=== PATIENT | female | born 1980 | race Caucasian/White ===

== ENCOUNTER 2016-09-05 06:55 | Day surgery (SDC) | payer OTHER ==
[2016-09-04 15:28] VITALS: BMI 19.9
--- NOTE | 2016-09-05 08:26 | HP ---
Admitting History and Physical - Admission Chief Complaint: Multiparity History of Present Illness: 36 yo Para 2, desires permanent sterilization. She's Pre op for tubal ligation. History Source: Patient Limitations to Obtaining History: No Limitations - Past Medical History ...LMP: 07/17/16 ...: No - Past Surgical History Past Surgical History: Yes: None - Smoking History Smoking history: Never smoked Have you smoked in the past 12 months: No - Alcohol/Substance Use Hx Alcohol Use: No History of Substance Use: reports: None - Social History Usual Living Arrangement: Yes: With Spouse History of Recent Travel: No Home Medications - Allergies Allergies/Adverse Reactions: Allergies Allergy/AdvReac Type Severity Reaction Status Date / Time No Known Drug Allergies Allergy Verified 09/05/16 07:30 - Home Medications Home Medications: Ambulatory Orders NK [No Known Home Medication] 09/04/16 Family Disease History - Family Disease History Family History: Unremarkable Review of Systems - Review of Systems Constitutional: reports: No Symptoms Eyes: reports: No Symptoms HENT: reports: No Symptoms Neck: reports: No Symptoms Cardiovascular: reports: No Symptoms Respiratory: reports: No Symptoms Gastrointestinal: reports: No Symptoms Genitourinary: reports: No Symptoms Breasts: reports: No Symptoms Reported Musculoskeletal: reports: No Symptoms Integumentary: reports: No Symptoms Neurological: reports: No Symptoms Endocrine: reports: No Symptoms Hematology/Lymphatic: reports: No Symptoms Psychiatric: reports: No Symptoms Pain Intensity: 0 Physical Examination Vital Signs: Vital Signs Temperature 97.5 F L 09/05/16 07:29 Pulse Rate 73 09/05/16 07:29 Respiratory Rate 20 09/05/16 07:29 Blood Pressure 115/80 09/05/16 07:29 O2 Sat by Pulse Oximetry (%) 100 09/05/16 07:28 Constitutional: Yes: Well Nourished Eyes: Yes: Conjunctiva Clear HENT: Yes: Atraumatic Neck: Yes: Supple, Trachea Midline Cardiovascular: Yes: Regular Rate and Rhythm Respiratory: Yes: Regular, CTA Bilaterally Gastrointestinal: Yes: Normal Bowel Sounds ...Rectal Exam: Yes: WNL Musculoskeletal: Yes: WNL Extremities: Yes: WNL Neurological: Yes: Alert, Oriented ...Motor Strength: WNL Psychiatric: Yes: Alert, Oriented Problem List - Problems (1) Multiparity Code(s): Z64.1 - PROBLEMS RELATED TO MULTIPARITY (2) Sterilization Code(s): Z30.2 - ENCOUNTER FOR STERILIZATION Assessment/Plan Multiparity Pre op for Laparoscopic bilateral tubal ligation Consent signed Anesthesia to see patient
--- NOTE | 2016-09-05 08:30 | OP ---
Operative Note - Note: Operative Date: 09/05/16 Pre-Operative Diagnosis: Multiparity Operation: Laparoscopic bilateral tubal ligation Findings: Normal abdomen and pelvis Post-Operative Diagnosis: Same as Pre-op Surgeon: Ivy Bañuelos Anesthesia: General Specimens Removed: None Estimated Blood Loss (mls): 5
[2016-09-05] MEDS ORDERED: PROPOFOL 20 ML ONE (08:42)
[2016-09-05] MEDS ORDERED: SUCCINYLCHOLINE CHLORIDE 200 MG/10 ML VIAL ONE (08:42)
[2016-09-05] MEDS ORDERED: MIDAZOLAM HCL 2 MG/2 ML SINGLE DOSE VIAL ONE (08:42)
[2016-09-05] MEDS ORDERED: LIDOCAINE HCL/PF 2% SDV 5ML VIAL ONE (08:44)
[2016-09-05] MEDS ORDERED: ROCURONIUM BROMIDE 50 MG/5 ML VIAL ONE (09:07)
[2016-09-05] MEDS ORDERED: ONDANSETRON 4 MG/2 ML VIAL ONE ×2 (09:08→09:55)
[2016-09-05] MEDS ORDERED: DEXAMETHASONE SOD PHOSPHATE 4 MG/1 ML VIAL ONE ×2 (09:08→09:55)
[2016-09-05] MEDS ORDERED: ceFAZolin SODIUM 1 GM VIAL ONE (09:31)
[2016-09-05] MEDS ORDERED: KETOROLAC TROMETHAMINE 30 MG/1 ML VIAL ONE (09:56)
[2016-09-05] MEDS ORDERED: MEPERIDINE HCL CARPU-JECT 25 MG/1 ML DISP.SYRIN IVPUSH PRN (10:06)
[2016-09-05] MEDS ORDERED: ONDANSETRON 4 MG/2 ML VIAL IVPUSH PRN (10:06)
[2016-09-05] MEDS ORDERED: oxyCODONE HCL 5 MG TABLET PO PRN (10:06)
[2016-09-05] MEDS ORDERED: LACTATED RINGERS SOLUTION 1,000 ML IV SCH (10:15)
[2016-09-05 12:05] VITALS: TEMP 98
[2016-09-05 14:53] VITALS: BP 128/70; PULSE 74
--- NOTE | 2016-11-13 21:39 | OP ---
DATE OF OPERATION: 09/05/2016 PREOPERATIVE DIAGNOSIS: Multiparity, desired permanent sterilization. POSTOPERATIVE DIAGNOSIS: Multiparity, desired permanent sterilization. PROCEDURE: Laparoscopic bilateral tubal ligation. SURGEON: Ivy Bañuelos MD ANESTHESIA: General. COMPLICATION: None. ESTIMATED BLOOD LOSS: 5 mL. PROCEDURE: The patient was taken to the operating room, where general anesthesia was administered. The patient was then placed in lithotomy position. She was then prepped and draped in proper sterile fashion. A weighted speculum was placed in the vagina. The anterior lip of the cervix was grasped with a single-tooth tenaculum and a HUMI uterine manipulator was then gently introduced into the uterine cavity. A Phelps catheter was also inserted. Attention was then turned to the abdomen, where a 5-mm skin incision was made in the umbilical fold. The Veress needle was carefully introduced into the peritoneal cavity while tenting the abdominal wall. Intraperitoneal placement was confirmed by use of a water-filled syringe and drop in intraabdominal pressure with insufflation of CO2 gas. The trocar and sleeve were then advanced without difficulty into the abdomen, where intraabdominal placement was confirmed by the laparoscope. Pneumoperitoneum was obtained with 3 L of CO2 gas and a 10-mm trocar and sleeve were then advanced without difficulty into the abdomen , where intraabdominal placement was confirmed by the laparoscope. A 2nd skin incision was then made 2 cm above the pubic symphysis in the midline. The 2nd trocar and sleeve were then advanced under direct visualization. A survey of the patient's pelvis and abdomen revealed entirely normal anatomy. The left tube was then grabbed with the grasper and then using the bipolar, a 3 cm segment of the tube was then burned. Complete blanching of the tube was visualized. The same procedure was then performed on the other side. Then the instruments were removed. The patient was taken out of lithotomy position. She was taken to PACU in stable condition. IVY BAÑUELOS M.D. [id number] MTDD
== END 2016-09-05 14:30 | disposition home or self-care (01) ==
LOC: JASU-SURG 06:55
PROVIDERS: ATTEND Obstetrics & Gynecology
PROC: 0UB74ZZ Excision of Bilateral Fallopian Tubes, Percutaneous Endoscopic Approach (ICD-10-PCS; principal; 2016-09-05 08:30)
DX: Z30.2 Encounter for sterilization (principal)
CPT/HCPCS: 84703; 94760